=== PATIENT | male | born 1990 | race Caucasian/White ===

== ENCOUNTER 2024-01-24 14:46 | Emergency (ER) | payer OTHER ==
[~2024-01-24] VITALS: Ht 190.5 cm; Wt 136.1 kg
[2024-01-24 15:29] VITALS: BP 137/89
[2024-01-24] MEDS ORDERED: Acetaminophen/Oxycodone 5 MG/325 MG TABLET PO ONE (15:35)
[2024-01-24] MEDS ORDERED: Tdap Vaccine 0.5 ML SYR (Adult Vaccine) IM ONE (18:50)
[2024-01-24] MEDS ORDERED: MELOXICAM15 MG PO (18:54)
== END 2024-01-24 19:09 | disposition home or self-care (01) ==
LOC: ED 14:46
DX: S60.012A Contusion of left thumb without damage to nail, initial encounter (principal); S60.312A Abrasion of left thumb, initial encounter; Z98.890 Other specified postprocedural states; W31.89XA Contact with other specified machinery, initial encounter; Y93.89 Activity, other specified; Y92.89 Other specified places as the place of occurrence of the external cause; Y99.0 Civilian activity done for income or pay